=== PATIENT | female | born 1985 | race Two or more races ===

== ENCOUNTER → 2017-01-15 | Outpatient (CLI) | payer OTHER ==
[~2017-01-15] MED LIST: /ANUSHCSU PR; ACET50TA PO; DOCU10ELUD PO; IBUP600T26 PO; MOM30SS PO
[2017-01-15 09:50] LABS: MEAN CORPUSCULAR HEMOGLOBIN 27.5 pg (27.0-33.0); MEAN CORPUSCULAR VOLUME 83.3 fl (80.0-96.0); RED CELL DISTRIBUTION WIDTH 13.8 % (11.5-14.5); WHITE BLOOD COUNT 8.8 K/mm3 (4.0-10.0)
[2017-01-15 10:10] LABS: ALBUMIN 3.6 GM/DL (3.2-5.2); ALBUMIN/GLOBULIN RATIO 0.88 (1.00-1.93); ALKALINE PHOSPHATASE 83 U/L (45-117); ALT/SGPT 23 U/L (12-78); ANION GAP 8 MEQ/L (8-16); AST/SGOT 17 U/L (15-37); BILIRUBIN,TOTAL 0.6 MG/DL (0.2-1.0); BLOOD UREA NITROGEN 7 MG/DL (7-18); CALCIUM LEVEL 8.5 MG/DL (8.5-10.1); CARBON DIOXIDE LEVEL 27 MEQ/L (21-32); CHLORIDE LEVEL 106 MEQ/L (98-107); CREATININE FOR GFR 0.59 MG/DL (0.55-1.02); FERRITIN 37 NG/ML (8-252); GLOMERULAR FILTRATION RATE > 60.0 (>60); GLUCOSE, FASTING 79 MG/DL (70-105); PERCENT SATURATION 25.3 % (13.2-45.0); POTASSIUM SERUM 4.3 MEQ/L (3.5-5.1); SODIUM LEVEL 141 MEQ/L (136-145); TOTAL IRON BINDING CAPACITY 324 UG/DL (250-450); TOTAL PROTEIN 7.7 GM/DL (6.4-8.2)
[2017-01-17 00:08] LABS: Lyme Disease IgG/IgM Antibodie <0.91 ISR (0.00-0.90); Lyme Disease IgM Ab Quantitati <0.80 index (0.00-0.79)
== END ==
LOC: M WUC 08:03
PROVIDERS: ATTEND Nurse Practitioner Adult Health
DX: Z00.00 Encounter for general adult medical examination without abnormal findings (principal); R53.83 Other fatigue

== ENCOUNTER → 2017-04-22 | Outpatient (CLI) | payer OTHER ==
--- NOTE | 2017-04-23 10:00 | REP ---
MRI LEFT SHOULDER: TECHNIQUE: Axial T2 fat sat, gradient echo, sagittal oblique T2 fat sat, coronal oblique T1, T2 fat sat. There is a partial full thickness tear of the anterior supraspinatus tendon. The other rotator cuff tendons appear intact. There are mild hypertrophic degenerative changes of the acromioclavicular joint with mild downward sloping of the acromion. Acromion is type 2. Biceps tendon is within the bicipital groove. There is no Hill-Sachs deformity. The deltoid muscle demonstrates no abnormal signal. The biceps labral complex is intact. There appears to be a tear of the posterior superior corner of the glenoid labrum. There may also be a tear of the posterior labrum more inferiorly. There is no paralabral cyst. There is a small amount of fluid in the subacromial/subdeltoid bursae. Small subchondral cystic changes are seen in the humeral head. IMPRESSION: Partial full thickness tear anterior supraspinatus tendon. Mild hypertrophic degenerative changes acromioclavicular joint with downward sloping of the acromion which is type 2. Small amount of fluid in the subacromial/subdeltoid bursae. There appears to be a tear of the posterior superior corner of the glenoid labrum. There may also be a tear more inferiorly of the posterior labrum. Further evaluation may be made with MR arthrogram. Signed by Kenyon Rodríguez MD 04/23/2017 08:36 P
== END ==
LOC: M RAD 16:19
PROVIDERS: ATTEND Orthopaedic Surgery
DX: M75.32 Calcific tendinitis of left shoulder (principal); M75.42 Impingement syndrome of left shoulder

== ENCOUNTER → 2017-05-23 | Outpatient (CLI) | payer OTHER | LOC: M SLEEP 20:00 | DX: G47.33 Obstructive sleep apnea (adult) (pediatric) (principal) ==

== ENCOUNTER → 2017-06-14 | Outpatient (CLI) | payer OTHER | LOC: M SLEEP 20:00 | DX: G47.33 Obstructive sleep apnea (adult) (pediatric) (principal) ==

== ENCOUNTER 2017-08-03 05:51 | Day surgery (SDC) | payer OTHER ==
[2017-08-03] MEDS ORDERED: EPINEPHrine INJ 1 MG/ML 1ML AMP (05:52)
[2017-08-03] MEDS ORDERED: ROPIvacaine 0.5% 30 ML INJECTION (J2795 PER 1MG) (05:52)
[2017-08-03] MEDS ORDERED: dexameTHASONE 10 MG/1 ML VIAL PRES.FREE (J1100) (05:52)
[2017-08-03] MEDS ORDERED: LR 1,000 ML IV ×2 (06:00→09:30)
[2017-08-03 06:46] LABS: CONTROL LINE UCG INT CTR LINE PRESENT; URINE PREG TEST NEGATIVE (NEGATIVE)
[2017-08-03] MEDS ORDERED: fentaNYL 100 MCG/2 ML INJECTION (J3010) As Ordered ×2 (07:02→07:48)
[2017-08-03] MEDS ORDERED: MIDAZOLAM INJ 2 MG/2 ML VIAL (J2250) As Ordered ×2 (07:02→07:48)
[2017-08-03] MEDS: fentaNYL 100 MCG/2 ML INJECTION (J3010) IV (07:12)
[2017-08-03] MEDS: MIDAZOLAM INJ 2 MG/2 ML VIAL (J2250) IV (07:12)
[2017-08-03] MEDS ORDERED: dexameTHASONE 4 MG/ML 1ML VIAL (J1100) As Ordered ×2 (07:48)
[2017-08-03] MEDS ORDERED: LIDOCAINE 2% INJ 100 MG/5 ML SDV (FOR ANES.) As Ordered (07:48)
[2017-08-03] MEDS ORDERED: PROPOFOL 200 MG/20 ML VIAL As Ordered (07:48)
[2017-08-03] MEDS ORDERED: ROCURONIUM BROMIDE 50 MG/5 ML VIAL As Ordered (07:48)
[2017-08-03] MEDS ORDERED: ONDANSETRON 4MG/2ML VIAL (J2405) As Ordered (08:15)
[2017-08-03] MEDS: LIDOCAINE 1% MDV 20ML VIAL As Ordered (08:15)
[2017-08-03] MEDS ORDERED: GLYCOPYRROLATE INJ 0.2 MG/ML 2 ML VIAL As Ordered (08:15)
[2017-08-03] MEDS: EPINEPHrine 1MG/ML INJ 30ML MD-VIAL As Ordered (08:15)
[2017-08-03] MEDS ORDERED: NEOSTIGMINE 10 MG/10 ML VIAL (J2710) As Ordered (08:15)
[2017-08-03] MEDS ORDERED: KETOROLAC 60 MG/2 ML VIAL (J1885) As Ordered (08:37)
[2017-08-03] MEDS ORDERED: ONDANSETRON 4MG/2ML VIAL (J2405) IV (09:30)
[2017-08-03] MEDS ORDERED: fentaNYL 100 MCG/2 ML INJECTION (J3010) IV (09:30)
== END 2017-08-03 10:55 | disposition home or self-care (01) ==
LOC: M SDC 05:51
DX: M75.102 Unspecified rotator cuff tear or rupture of left shoulder, not specified as traumatic (principal); M75.42 Impingement syndrome of left shoulder; M75.32 Calcific tendinitis of left shoulder; G47.30 Sleep apnea, unspecified; Z88.8 Allergy status to other drugs, medicaments and biological substances; Z79.899 Other long term (current) drug therapy
CPT/HCPCS: 29823

== ENCOUNTER → 2020-02-01 | Outpatient (REF) | payer OTHER ==
[~2020-02-01] MED LIST changes: -/ANUSHCSU PR; -ACET50TA PO; -DOCU10ELUD PO; +DOCU5LIQ PO; +HYDR1SUP3 PR; +MAPA500T17 PO; +ZOLO50TA PO
[2020-02-01 14:06] LABS: ALBUMIN 3.6 GM/DL (3.2-5.2); ALT/SGPT 26 U/L (12-78); BILIRUBIN,TOTAL 0.5 MG/DL (0.2-1.0); BLOOD UREA NITROGEN 7 MG/DL (7-18); CALCIUM LEVEL 8.8 MG/DL (8.5-10.1); CARBON DIOXIDE LEVEL 26 MEQ/L (21-32); CHLORIDE LEVEL 105 MEQ/L (98-107); CHOLESTEROL LEVEL 214 MG/DL (<200); CHOLESTEROL RISK RATIO 4.976 (<5); CREATININE FOR GFR 0.63 MG/DL (0.55-1.30); GLOMERULAR FILTRATION RATE > 60.0 (>60); GLUCOSE, FASTING 79 MG/DL (70-100); HDL CHOLESTEROL 43 MG/DL (>40); LDL CHOLESTEROL 145 MG/DL (<100); NON-HDL-C 171 MG/DL; POTASSIUM SERUM 4.5 MEQ/L (3.5-5.1); SODIUM LEVEL 137 MEQ/L (136-145); TOTAL PROTEIN 7.8 GM/DL (6.4-8.2); TRIGLYCERIDES LEVEL 130 MG/DL (<150)
[2020-02-01 16:20] LABS: HEMOGLOBIN A1c 5.2 %
== END ==
LOC: M LABDRWAD 12:28
PROVIDERS: ATTEND Nurse Practitioner Adult Health
DX: Z00.00 Encounter for general adult medical examination without abnormal findings (principal); Z13.220 Encounter for screening for lipoid disorders; Z13.1 Encounter for screening for diabetes mellitus

== ENCOUNTER → 2020-02-21 | Outpatient (REF) | payer OTHER | LOC: M LAB REF 16:34 | PROVIDERS: ATTEND Physician Assistant | DX: J02.9 Acute pharyngitis, unspecified (principal) ==

== ENCOUNTER → 2020-03-20 | Outpatient (CLI) | payer OTHER ==
[2020-03-20 15:52] LABS: BASO # 0.1 10^3/uL (0.0-0.2); BASO % 0.5 % (0.0-1.0); EOS # 0.2 10^3/uL (0.0-0.5); EOS % 1.8 % (0.0-3.0); HEMATOCRIT 40.3 % (36.0-47.0); HEMOGLOBIN 12.7 g/dl (12.0-15.5); LYMPH # 3.7 10^3/uL (1.5-5.0); LYMPH % 36.6 % (24.0-44.0); MEAN CORPUSCULAR HGB CONC 31.5 g/dl (32.0-36.5); MEAN CORPUSCULAR VOLUME 85.7 fl (80.0-96.0); MONO # 0.5 10^3/uL (0.0-0.8); MONO % 5.3 % (0.0-5.0); NEUTROPHILS # 5.6 10^3/uL (1.5-8.5); NEUTROPHILS % 55.6 % (36.0-66.0); PLATELET COUNT, AUTOMATED 384 10^3/uL (150-450); WHITE BLOOD COUNT 10.1 10^3/uL (4.0-10.0)
[2020-03-20 16:52] LABS: ALBUMIN 3.8 GM/DL (3.2-5.2); ALT/SGPT 27 U/L (12-78); BILIRUBIN,TOTAL 0.5 MG/DL (0.2-1.0); BLOOD UREA NITROGEN 9 MG/DL (7-18); CALCIUM LEVEL 8.9 MG/DL (8.5-10.1); CARBON DIOXIDE LEVEL 28 MEQ/L (21-32); CHLORIDE LEVEL 105 MEQ/L (98-107); CREATININE FOR GFR 0.69 MG/DL (0.55-1.30); GLOMERULAR FILTRATION RATE > 60.0 (>60); GLUCOSE, FASTING 81 MG/DL (70-100); POTASSIUM SERUM 4.3 MEQ/L (3.5-5.1); SODIUM LEVEL 138 MEQ/L (136-145)
[2020-03-22 15:12] LABS: EBV AB TO NUCLEAR ANTIGEN >600.0 U/mL (0.0-17.9); EBV VIRAL CAPSID AG IgG >600.0 U/mL (0.0-17.9); EBV VIRAL CAPSID AG IgM <36.0 U/mL (0.0-35.9)
== END ==
LOC: M WUC 11:58
PROVIDERS: ATTEND Physician Assistant
DX: J03.90 Acute tonsillitis, unspecified (principal); Z20.828 Contact with and (suspected) exposure to other viral communicable diseases

== ENCOUNTER → 2020-03-20 | Outpatient (REF) | payer OTHER | LOC: M LAB REF 15:00 | PROVIDERS: ATTEND Physician Assistant | DX: J03.90 Acute tonsillitis, unspecified (principal) ==

== ENCOUNTER → 2020-04-30 | Outpatient (REF) | payer OTHER | LOC: M SFHCPLAZ 12:35 | PROVIDERS: ATTEND Nurse Practitioner Adult Health | DX: R35.0 Frequency of micturition (principal) ==

== ENCOUNTER 2020-06-10 04:05 | Emergency (ER) | payer OTHER ==
[~2020-06-10] VITALS: Ht 160 cm; Wt 127.7 kg
[2020-06-10] MEDS ORDERED: PAXI20TA29 PO (04:16)
[2020-06-10] MEDS ORDERED: TUMS500C PO (04:16)
[2020-06-10] MEDS ORDERED: RANI15TA PO (04:26)
[2020-06-10] MEDS ORDERED: ONDANSETRON 4MG/2ML VIAL IV ONE (04:30)
[2020-06-10] MEDS ORDERED: MORPHINE 4 MG/ML 1ML VIAL/SYRINGE (J2270) IV ONE (04:30)
[2020-06-10 05:13] LABS: BASO # 0.1 10^3/uL (0.0-0.2); BASO % 0.6 % (0.0-1.0); EOS # 0.2 10^3/uL (0.0-0.5); EOS % 1.5 % (0.0-3.0); HEMATOCRIT 38.9 % (36.0-47.0); HEMOGLOBIN 12.6 g/dl (12.0-15.5); LYMPH % 26.8 % (24.0-44.0); MEAN CORPUSCULAR HEMOGLOBIN 27.3 pg (27.0-33.0); MEAN CORPUSCULAR HGB CONC 32.4 g/dl (32.0-36.5); MEAN CORPUSCULAR VOLUME 84.4 fl (80.0-96.0); MONO # 0.5 10^3/uL (0.0-0.8); MONO % 4.5 % (0.0-5.0); NEUTROPHILS # 7.5 10^3/uL (1.5-8.5); NEUTROPHILS % 66.4 % (36.0-66.0); PLATELET COUNT, AUTOMATED 377 10^3/uL (150-450); RED BLOOD COUNT 4.61 10^6/uL (4.00-5.40); WHITE BLOOD COUNT 11.3 10^3/uL (4.0-10.0)
[2020-06-10 05:33] LABS: ALBUMIN 3.7 GM/DL (3.2-5.2); BILIRUBIN,DIRECT 0.1 MG/DL (0.0-0.2); BILIRUBIN,TOTAL 0.5 MG/DL (0.2-1.0); TOTAL PROTEIN 8.5 GM/DL (6.4-8.2)
[2020-06-10] MEDS ORDERED: ISOVUE-370 76% 100ML VIAL As Ordered ONE (05:42)
--- NOTE | 2020-06-10 06:47 | REPVR ---
PROCEDURE INFORMATION: Exam: CT Abdomen And Pelvis With Contrast Exam date and time: 06/10/2020 5:57 AM Age: 34 years old Clinical indication: Abdominal pain; Localized; Upper; Additional info: Ruq/luq pain and ttp radiating to left CVA TECHNIQUE: Imaging protocol: Computed tomography of the abdomen and pelvis with contrast. Radiation optimization: All CT scans at this facility use at least one of these dose optimization techniques: automated exposure control; mA and/or kV adjustment per patient size (includes targeted exams where dose is matched to clinical indication); or iterative reconstruction. Contrast material: ISOVUE 370; Contrast volume: 100 ml; Contrast route: INTRAVENOUS (IV); COMPARISON: No relevant prior studies available. FINDINGS: Liver: Fatty infiltration of the liver. Hepatomegaly longitudinally measuring 23.5 cm. Gallbladder and bile ducts: Mild elongated expanded gallbladder without definite calculi with hydropic diameter measuring 5.2 cm. Pancreas: Normal. No ductal dilation. Spleen: Upper normal spleen size. Adrenal glands: Normal. No mass. Kidneys and ureters: Normal. No hydronephrosis. Stomach and bowel: Unremarkable. No obstruction. No mucosal thickening. Appendix: No evidence of appendicitis. Intraperitoneal space: Unremarkable. No free air. No significant fluid collection. Vasculature: Unremarkable. No abdominal aortic aneurysm. Lymph nodes: Unremarkable. No enlarged lymph nodes. Urinary bladder: Unremarkable as visualized. Reproductive: Small functional cyst left ovary. Bones/joints: Mild degenerative change of the spine. Soft tissues: Unremarkable. IMPRESSION: 1. Elongated hydropic diameter of the gallbladder. 2. Fatty infiltration of the liver. 3. Hepatomegaly. Electronically signed by: Bridgett Coleman On 06/10/2020 06:47:06 AM
[2020-06-10] MEDS ORDERED: DICY10CA13 PO (07:09)
[2020-06-10 07:18] VITALS: BP 129/74
== END 2020-06-10 07:39 | disposition home or self-care (01) ==
LOC: M ED 04:05
DX: R10.13 Epigastric pain (principal)
CPT/HCPCS: 74177; 80047; 80076; 81001; 83690; 84702; 85025; 87086; 93041; 96374; 96375; 99284; J2270; J2405; Q9967

== ENCOUNTER → 2020-07-09 | Outpatient (CLI) | payer OTHER ==
[~2020-07-09] MED LIST changes: +DICY10CA13 PO; +PAXI20TA29 PO; +RANI15TA PO; +TUMS500C PO
--- NOTE | 2020-07-09 11:28 | REP ---
INDICATION: EPIGASTRIC PAIN. COMPARISON: None TECHNIQUE/RADIOTRACER AND DOSE: FOLLOWING THE INTRAVENOUS ADMINISTRATION OF 6.6 MCI TECHNETIUM 99 M-MEBROFENIN, MULTIPLE IMAGES OF THE RIGHT UPPER QUADRANT ARE PERFORMED FOR 60 MINUTES. NEXT 8 OZ OF ENSURE ENLIVE IS INGESTED AND FURTHER IMAGING IS PERFORMED FOR 65 MINUTES. FINDINGS: THE GALLBLADDER IS VISUALIZED AT 55 MINUTES POST INJECTION. THERE IS BILIARY TO BOWEL TRANSIT AT 15MINUTES POST INJECTION. THERE IS NO SCINTIGRAPHIC EVIDENCE OF CHOLECYSTITIS. GALLBLADDER EJECTION FRACTION IS CALCULATED TO BE 2% WHICH IS well below normal of 35% or greater. IMPRESSION: Significantly low gallbladder ejection fraction of 2%. <Electronically signed by Kenyon Rodríguez > 07/09/20 1128
== END ==
LOC: M RAD 08:37
PROVIDERS: ATTEND Nurse Practitioner Adult Health
DX: R10.13 Epigastric pain (principal)
CPT/HCPCS: 78227; A9537

== ENCOUNTER → 2020-08-12 | Outpatient (CLI) | payer OTHER | LOC: M LABSMTC 09:15 | PROVIDERS: ATTEND Anesthesiology | DX: Z01.812 Encounter for preprocedural laboratory examination (principal) ==

== ENCOUNTER 2020-08-17 07:43 | Day surgery (SDC) | payer OTHER ==
[~2020-08-17] VITALS: Ht 160 cm; Wt 125.6 kg
[~2020-08-17 07:43] MED LIST changes: +LR 1,000 ML IV ONE
[2020-08-17] MEDS ORDERED: BUPIVACAINE/EPIN 0.25% 30 ML VIAL As Ordered ONE (09:30)
[2020-08-17] MEDS ORDERED: ONDANSETRON 4MG/2ML VIAL As Ordered ONE (09:57)
[2020-08-17] MEDS ORDERED: fentaNYL 100 MCG/2 ML INJECTION (J3010) As Ordered ONE ×2 (09:57→11:12)
[2020-08-17] MEDS ORDERED: SUGAMMADEX SODIUM 500 MG/5 ML VIAL (BRIDION) As Ordered ONE (09:57)
[2020-08-17] MEDS ORDERED: ROCURONIUM BROMIDE 50 MG/5 ML VIAL As Ordered ONE (09:57)
[2020-08-17] MEDS ORDERED: MIDAZOLAM INJ 2MG/2ML VIAL (J2250 PER 1MG) As Ordered ONE (09:57)
[2020-08-17] MEDS ORDERED: propofoL 200 MG/20 ML VIAL As Ordered ONE (09:57)
[2020-08-17] MEDS ORDERED: dexameTHASONE 4 MG/ML 1ML VIAL (J1100 PER 1MG) As Ordered ONE (09:57)
[2020-08-17] MEDS ORDERED: KETOROLAC 60MG 2ML VIAL As Ordered ONE (09:57)
[2020-08-17] MEDS ORDERED: LIDOCAINE 2% 100MG/5ML SDV (FOR ANES.) As Ordered ONE (09:57)
[2020-08-17] MEDS ORDERED: HYDROmorphone HCL 2 MG/ML 1ML VIAL (J1170) As Ordered ONE (09:59)
[2020-08-17] MEDS ORDERED: ACETAMINOPHEN 1000MG 100ML IV BTL (OFIRMEV) (J0131 PER 10MG) As Ordered ONE (10:18)
[2020-08-17] MEDS ORDERED: ESMOLOL INJ 100MG/10ML VIAL As Ordered ONE (10:28)
[2020-08-17] MEDS ORDERED: hydrALAZINE 20MG/ML 1ML VIAL (J0360 PER 20MG) As Ordered ONE (10:29)
[2020-08-17] MEDS ORDERED: METOCLOPRAMIDE INJ 10MG/2ML VIAL (J2765 PER 1) IV PRN (11:15)
[2020-08-17] MEDS ORDERED: MEPERIDINE INJ 25 MG/ML VIAL (J2175) IV PRN (11:15)
[2020-08-17] MEDS ORDERED: fentaNYL 100 MCG/2 ML INJECTION (J3010) IV PRN (11:15)
[2020-08-17] MEDS ORDERED: NORCO, ANEXSIA 5/325MG TABLET (HYDROcodone/ACETAMINOPHEN) PO PRN (11:15)
[2020-08-17] MEDS ORDERED: ONDANSETRON 4MG/2ML VIAL IV PRN (11:15)
[2020-08-17] MEDS ORDERED: LR 1,000 ML IV SCH (11:15)
[2020-08-17] MEDS ORDERED: oxyCODONE 5MG TAB PO PRN (11:15)
--- NOTE | 2020-08-17 11:48 | RO ---
OPERATIVE NOTE DATE OF OPERATION: 08/17/2020 PREOPERATIVE DIAGNOSIS: Biliary dyskinesia. POSTOPERATIVE DIAGNOSIS: Biliary dyskinesia. PROCEDURE: Robotic cholecystectomy. SURGEON: Kenyon Jacobo DO ASSIST: Jamilah Staley ANESTHESIA: General. EBL: 5. COMPLICATIONS: None. INDICATIONS FOR PROCEDURE: The patient is a 34-year-old female who presents with persistent right upper quadrant abdominal pain, found to have biliary dyskinesia with abnormal HIDA scan of 2%. Recommendation was to proceed with robotic cholecystectomy. Risks and benefits of the procedure including but not limited to bleeding, infection, hernia formation, damage to surrounding structures and need for further surgery were discussed in detail with the patient and informed consent was obtained and procedure was planned. DESCRIPTION OF PROCEDURE: The patient was brought back to operating room 7. After sufficient sedation the abdomen was sterilely prepped and draped. Time out was done to confirm proper patient and proper procedure. An 8 mm incision was made in left upper quadrant, Veress needle was inserted and the abdomen was insufflated to 15 mmHg. Veress needle was removed and 8 mm Optiview port was used to gain access to the abdomen. Once the abdomen was entered three more ports were placed in the right upper quadrant. Ports were then connected to the robot. The robot was docked. The abdomen was examined. The fundus of the gallbladder was elevated up toward the right shoulder. Omental adhesions were gently dissected off the gallbladder using blunt dissection. Once the neck of the gallbladder was reached the cystic duct and cystic artery were carefully dissected free using combination of blunt and sharp dissection. Once they were both clearly identified they were both doubly clipped and cut. The gallbladder was dissected free from the gallbladder fossa using electrocautery. Once the gallbladder was removed it was placed inside a 5 mm Endo Catch bag and brought out through the right lateral port site. Once the gallbladder was removed the bile that leaked out of the gallbladder was aspirated out of the right upper quadrant. The liver fossa was examined to confirm hemostasis. The abdomen was then desufflated. Skin incisions were closed with 4-0 Vicryl subcuticular sutures. The abdomen was cleaned and dried. Steri-Strips, 4 x 4 and tape were applied. This ended the procedure.
[2020-08-17 13:05] VITALS: BP 112/62
== END 2020-08-17 13:25 | disposition home or self-care (01) ==
LOC: M SDC 07:43
PROVIDERS: ATTEND Surgery
DX: K82.4 Cholesterolosis of gallbladder (principal); G47.33 Obstructive sleep apnea (adult) (pediatric); Z79.899 Other long term (current) drug therapy
CPT/HCPCS: 47562; 81025; 88304; J0131; J0360; J1100; J1170; J1885; J2250; J2405; J3010; S2900

== ENCOUNTER → 2020-10-03 | Outpatient (CLI) | payer OTHER ==
[~2020-10-03] MED LIST changes: -LR 1,000 ML IV ONE
--- NOTE | 2020-10-03 17:56 | REP ---
INDICATION: PAIN IN LEFT KNEE COMPARISON: None TECHNIQUE: Five views FINDINGS: The compartments are symmetric and relatively well maintained. There is no acute fracture or destructive osseous lesion. IMPRESSION: Within normal limits <Electronically signed by Forrest Madera > 10/03/20 7230
== END ==
LOC: M RAD 17:35
PROVIDERS: ATTEND Nurse Practitioner Family
DX: M25.562 Pain in left knee (principal)

== ENCOUNTER → 2021-03-09 | Outpatient (CLI) | payer OTHER | LOC: M LABSMTC 10:35 | PROVIDERS: ATTEND Anesthesiology | DX: Z01.812 Encounter for preprocedural laboratory examination (principal); Z20.822 Contact with and (suspected) exposure to COVID-19 ==

== ENCOUNTER → 2021-03-09 | Outpatient (CLI) | payer OTHER ==
--- NOTE | 2021-03-09 15:32 | ECGEPIP ---
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 Electronically Signed on 03-09-2021 15:32:09 EDT by Ian Thomas
== END ==
LOC: M EKG 11:16
PROVIDERS: ATTEND Anesthesiology
DX: G47.30 Sleep apnea, unspecified (principal)

== ENCOUNTER 2021-03-14 07:55 | Day surgery (SDC) | payer OTHER ==
[~2021-03-14] VITALS: Ht 160 cm; Wt 127.0 kg
[~2021-03-14 07:55] MED LIST changes: +LIDOCAINE 1% MDV 20ML VIAL SQ PRN; +LR 1,000 ML IV ONE; +dexameTHASONE 4 MG/ML 1ML VIAL (J1100 PER 1MG) IV ONE
--- OUTSIDE RECORDS SUMMARY | 2021-03-14 07:59 | CCD | Continuity of Care Document ---
Author Author Diego RENAE MD Organization Unknown Address [address] [facility] [address] [place] [address] Phone [phone] Care Team Providers Care Safety Engineer Name Role Phone AmiageLibby R.N. AUTM [phone] AUTM Unavailable Problems Active Problems Provider Date Obstructive sleep apnea syndrome Garry Herbert PDede Onset: 06/10/2017 Difficulty breathing Cleo Raza Onset: 05/20/2017 Disturbance of consciousness Garry Herbert PDede Onset: 05/04 Social History Type Date Description Comments Sex Unknown ETOH Use Occasionally consumes alcohol Tobacco Use Start: Unknown Patient has never smoked Recreational Drug Use Denies Drug Use Allergies and adverse reactions Active Allergies Criticality Reaction | Severity Comments Date Christianne Unable to assess criticality Skin Blisters 05/20/2017 Medications Active Medications SIG Qnty Indications Ordering Provide r Date Paxil 10mg Tablets 1 by mo uth every day Unknown Ibuprofen 600mg Tablets prn Unknown History Medications Hydrocodone-Acetaminophen 5-325mg Tablets One Tab PO Q6H as Needed For Post-Op Pain 10tabs K82.8 Kenyon Jacobo, 08/08/2020 - 08/29/2020 Immunizations Description No Information Available Vital Signs Date Vital Result Comment 01/25/2021 3:29pm Height 63.5 inches 5'3.50" Weight 277.00 lb BMI (Body Mass Index) 48.3 kg/m2 [place] Body Weight 115 lb Weight 125.647 kg BSA (Body Surface Area) 2.23 m2 08/30/2020 10:15am BP Systolic 131 mmHg BP Diastolic 85 mmHg Height 63.5 inches 5'3.50" Weight 275.00 lb BMI (Body Mass Index) 47.9 kg/m2 [place] Body Weight 115 lb Weight 124.740 kg BSA (Body Surface Area) 2.23 m2 Results Test Acquired Date Facility Test Result H/L Range Note Laboratory test finding 08/17/2020 [facility] [address] [place] [address] [phone] Pathology Request For Service (SEE NOTE) 1 1 FINAL DIAGNOSIS Gallbladder, cholecystectomy: Cholesterolosis with mild chronic inflammation without entrapped epithelial crypts. Comment: Clinical history of biliary dyskinesia is noted. 08/20/2020 - 954 CLINICAL DIAGNOSIS Biliary dyskinesia 08/20/2020 - 718 GROSS DIAGNOSIS Received in formalin labeled "gallbladder and contents" and consists of a 6 x 3 x 2 cm. The specimen is opened to reveal benign mucosa. No gallstones are identified. No polypoid or mass lesion is identified. Tobacco Drier Operator sections submitted in one. -OA 08/20/2020 - 718 Signed PASQUALE GOOD MD 08/20/2020 0955 Procedures Date Code Description Status 01/25/2021 85972 Office/Outpatient New Moderate M DM 45-59 Minutes Completed 08/17/2020 43431 Laparoscopy,Surgical;Cholecystec rena Completed Medical Devices Description No Information Available Encounters Type Date Location Provider Dx Diagnosis Office Visit 01/25/2021 3:30p [facility] John Paul Renae MD J35.01 Chronic tonsillitis Office Visit 08/30/2020 10:00a [facility] SY Cohen K81.1 Chronic cholecystitis Z48.815 Encntr for surgical aftcr fo llowing surgery on the dgstv sys Z90.49 Acquired absence of other sp ecified parts of digestive tract Assessments Date Code Description Provider 01/25/2021 J35.01 Chronic tonsillitis John Paul Renae MD 08/30/2020 K81.1 Chronic cholecystitis SY Alejandra 08/30/2020 Z48.815 Encounter for surgic al aftercare following surgery on the digestive system SY Luna 08/30/2020 Z90.49 Acquired absence of other specif ied parts of digestive tract SY Luna 08/17/2020 K82.8 Other specified diseases of gall bladder Kenyon Jacobo DO 08/17/2020 K81.1 Chronic cholecystitis Kenyon Jacobo DO Plan of Treatment 01/25/2021 - John Paul Renae MD* J35.01 Chronic tonsillitis* Comments:* Management option for recurrent tonsillitis include careful observation with use of antibiotic versus tonsillectomy. Risks of procedure include, but are not li mited to, bleeding, infection, GA risks, post-op pain, dehydration, and taste disturbance. The patient understands and wishes to proceed. Functional Status Functional Condition Comment Date Status Independent with all ADL's Activ e Independent with all IADL's Acti ve Mental Status Mental Condition Comment Date Status Cognitive ability not impaired A ctive Referrals Description No Information Available
--- OUTSIDE RECORDS SUMMARY | 2021-03-14 07:59 | CCD ---
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 Name Role Phone Dia, Fabienne PULLER MACHINE Unavailable Unavailable Dia, Fabienne PULLER MACHINE Unavailable Unavailable Dia, Fabienne PULLER MACHINE Unavailable Unavailable Dia, Fabienne PULLER MACHINE Unavailable Unavailable Dia, Fabienne PULLER MACHINE Unavailable Unavailable Dia, Fabienne PULLER MACHINE Unavailable Unavailable Dia, Fabienne PULLER MACHINE Unavailable Unavailable Dia, Fabienne PULLER MACHINE Unavailable Unavailable Dia, Fabienne PULLER MACHINE Unavailable Unavailable Dia, Fabienne PULLER MACHINE Unavailable Unavailable Dia, Fabeinne PULLER MACHINE Unavailable Unavailable Dia, Fabienne PULLER MACHINE Unavailable Unavailable Dia, Fabienne PULLER MACHINE Unavailable Unavailable LETTIERE, Arminda NORTON PA Unavailable Unavailable LETTIERE, Arminda DAN Unavailable Unavailable LETTIERE, Arminda NORTON PA Unavailable Unavailable LETTIERE, Arminda NORTON PA Unavailable Unavailable LETTIERE, Arminda NORTON PA Unavailable Unavailable LETTIERE, Arminda NORTON PA Unavailable Unavailable LETTIERE, Arminda NORTON PA Unavailable Unavailable LETTIERE, Arminda NORTON PA Unavailable Unavailable LETTIERE, Arminda NORTON PA Unavailable Unavailable LETTIERE, Arminda DAN Unavailable Unavailable LETTIERE, Arminda NORTON PA Unavailable Unavailable LETTIERE, Arminda DAN Unavailable Unavailable LETTIERE, Arminda DAN Unavailable Unavailable LETTIERE, Arminda DAN Unavailable Unavailable LETTIERE, A CIERRA PA Unavailable Unavailable LETTIERE, A CIERRA PA Unavailable Unavailable LETTIERE, A CIERRA PA Unavailable Unavailable LETTIERE, A CIERRA PA Unavailable Unavailable LETTIERE, A CIERRA PA Unavailable Unavailable LETTIERE, A CIERRA PA Unavailable Unavailable LETTIERE, A CIERRA PA Unavailable Unavailable LETTIERE, A CIERRA PA Unavailable Unavailable LETTIERE, A CIERRA PA Unavailable Unavailable LETTIERE, A CIERRA PA Unavailable Unavailable LETTIERE, A CIERRA PA Unavailable Unavailable LETTIERE, A CIERRA PA Unavailable Unavailable LETTIERE, A CIERRA PA Unavailable Unavailable LETTIERE, A CIERRA PA Unavailable Unavailable LETTIERE, A CIERRA PA Unavailable Unavailable LETTIERE, A CIERRA PA Unavailable Unavailable LETTIERE, A CIERRA PA Unavailable Unavailable Palacios, Ada Tomasa PA Unavailable Unavailable Palacios, Ada Tomasa PA Unavailable Unavailable Palacios, Ada Tomasa PA Unavailable Unavailable Palacios, Ada Tomasa PA Unavailable Unavailable Palacios, Ada Tomasa PA Unavailable Unavailable Palacios, Ada Tomasa PA Unavailable Unavailable Palacios, Ada Tomasa PA Unavailable Unavailable Palacios, Ada Tomasa PA Unavailable Unavailable Palacios, Ada Tomasa PA Unavailable Unavailable Palacios, Ada Tomasa PA Unavailable Unavailable BRYDEN, A BOGDAN DO Unavailable Unavailable BRYDEN, A BOGDAN DO Unavailable Unavailable BRYDEN, A BOGDAN DO Unavailable Unavailable BRYDEN, A BOGDAN DO Unavailable Unavailable BRYDEN, A BOGDAN DO Unavailable Unavailable BRYDEN, A BOGDAN DO Unavailable Unavailable BRYDEN, A BOGDAN DO Unavailable Unavailable BRYDEN, A BOGDAN DO Unavailable Unavailable BRYDEN, A BOGDAN DO Unavailable Unavailable BRYDEN, A BOGDAN DO Unavailable Unavailable BRYDEN, A BOGDAN DO Unavailable Unavailable BRYDEN, A BOGDAN DO Unavailable Unavailable BRYDEN, A BOGDAN DO Unavailable Unavailable BRYDEN, A BOGDAN DO Unavailable Unavailable BRYDEN, A BOGDAN DO Unavailable Unavailable BRYDEN, A BOGDAN DO Unavailable Unavailable BRYDEN, A BOGDAN DO Unavailable Unavailable BRYDEN, A BOGDAN DO Unavailable Unavailable BRYDEN, A BOGDAN DO Unavailable Unavailable BRYDEN, A BOGDAN DO Unavailable Unavailable BRYDEN, A BGODAN DO Unavailable Unavailable BRYDEN, A BOGDAN DO Unavailable Unavailable BRYDEN, A BOGDAN DO Unavailable Unavailable BRYDEN, A BOGDAN DO Unavailable Unavailable BRYDEN, A BOGDAN DO Unavailable Unavailable BRYDEN, A BOGDAN DO Unavailable Unavailable BRYDEN, A BOGDAN DO Unavailable Unavailable BRYDEN, A BOGDAN DO Unavailable Unavailable BRYDEN, A BOGDAN DO Unavailable Unavailable Colby, L Thuy RPA Unavailable Unavailable Colby, L Thuy RPA Unavailable Unavailable Colby, L Thuy RPA Unavailable Unavailable Colby, L Thuy RPA Unavailable Unavailable Colby, L Thuy RPA Unavailable Unavailable Colby, L Thuy RPA Unavailable Unavailable Colby, L Thuy RPA Unavailable Unavailable Colby, L Thuy RPA Unavailable Unavailable Colby, L Thuy RPA Unavailable Unavailable Colby, L Thuy RPA Unavailable Unavailable Colby, L Thuy RPA Unavailable Unavailable Colby, L Thuy RPA Unavailable Unavailable Colby, L Thuy RPA Unavailable Unavailable Colby, L Thuy RPA Unavailable Unavailable Colby, L Thuy RPA Unavailable Unavailable Colby, L Thuy RPA Unavailable Unavailable Colby, L Thuy RPA Unavailable Unavailable Colby, L Thuy RPA Unavailable Unavailable Colby, L Thuy RPA Unavailable Unavailable Colby, L Thuy RPA Unavailable Unavailable Colby, L Thuy RPA Unavailable Unavailable Colby, L Thuy RPA Unavailable Unavailable Colby, L Thuy RPA Unavailable Unavailable Colby, L Thuy RPA Unavailable Unavailable Colby, L Thuy RPA Unavailable Unavailable Colby, L Thuy RPA Unavailable Unavailable Colby, L Thuy RPA Unavailable Unavailable Colby, L Thuy RPA Unavailable Unavailable Colby, L Thuy RPA Unavailable Unavailable Colby, L Thuy RPA Unavailable Unavailable Colby, L Thuy RPA Unavailable Unavailable Colby, L Thuy RPA Unavailable Unavailable Srinath RENAE MD Unavailable Unavailable Srinaht RENAE MD Unavailable Unavailable Srinath RENAE MD Unavailable Unavailable Srinath RENAE MD Unavailable Unavailable Srinath RENAE MD Unavailable Unavailable Srinath RENAE MD Unavailable Unavailable Srinath RENAE MD Unavailable Unavailable Srianth RENAE MD Unavailable Unavailable Srinath RENAE MD Unavailable Unavailable Srinath RENAE MD Unavailable Unavailable Srinath RENAE MD Unavailable Unavailable Srinath RENAE MD Unavailable Unavailable Srinath RENAE MD Unavailable Unavailable Srinath RENAE MD Unavailable Unavailable Srinath RENAE MD Unavailable Unavailable Srinath RENAE MD Unavailable Unavailable Srinath RENAE MD Unavailable Unavailable Srinath RENAE MD Unavailable Unavailable Srinath RENAE MD Unavailable Unavailable Srinath RENAE MD Unavailable Unavailable ERIN, C SHIKHA MD Unavailable Unavailable ERIN, C SHIKHA MD Unavailable Unavailable ERIN, C SHIKHA MD Unavailable Unavailable ERIN, C SHIKAH MD Unavailable Unavailable ERIN, C SHIKHA MD Unavailable Unavailable ERIN, C SHIKHA MD Unavailable Unavailable ERIN, C SHIKHA MD Unavailable Unavailable ERIN, C SHIKHA MD Unavailable Unavailable ERIN, C SHIKHA MD Unavailable Unavailable ERIN, C SHIKHA MD Unavailable Unavailable ERIN, C SHIKHA MD Unavailable Unavailable ERIN, C SHIKHA MD Unavailable Unavailable ERIN, C SHIKHA MD Unavailable Unavailable ERIN, C SHIKHA MD Unavailable Unavailable Re-disclosure Warning The records that you are about to access may contain information from federally-assisted alcohol or drug abuse programs. If such information is present, then the following federally mandated warning applies: This information has been disclosed to you from records protected by federal confidentiality rules (42 CFR part 2). The federal rules prohibit you from making any further disclosure of this information unless further disclosure is expressly permitted by the written consent of the person to whom it pertains or as otherwise permitted by 42 CFR part 2. A general authorization for the release of medical or other information is NOT sufficient for this purpose. The Federal rules restrict any use of the information to criminally investigate or prosecute any alcohol or drug abuse patient.The records that you are about to access may contain highly sensitive health information, the redisclosure of which is protected by Article 27-F of the [facility] Public Health law. If you continue you may have access to information: Regarding HIV / AIDS; Provided by facilities licensed or operated by the [facility] Office of Mental Health; or Provided by the [facility] Office for People With Developmental Disabilities. If such information is present, then the following [facility] mandated warning applies: This information has been disclosed to you from confidential records which are protected by state law. State law prohibits you from making any further disclosure of this information without the specific written consent of the person to whom it pertains, or as otherwise permitted by law. Any unauthorized further disclosure in violation of state law may result in a fine or intermediate sentence or both. A general authorization for the release of medical or other information is NOT sufficient authorization for further disc losure. Family History Family Member Name Family Member Gender Family Member Status Date o f Status Description Data Source(s) Unknown Unknown Problem [facility] ([facility]) Unknown Unknown Problem [facility] ([facility]) Unknown Male Problem [facility] ([facility], ) Unknown Male Problem [facility] ([facility]) Encounters Encounter Providers Location Date Indications Data Source(s ) Outpatient Attender: SHIKHA Renae/Alejandrina/Ori/Analy lal 01/25/2021 03:30:00 PM EDT [facility] ([facility] [place] [address] [facility] [facility] [address] 01/09/2021 12:00:00 AM EDT eCW1 ([facility]) Outpatient Attender: Fabienne telles 10/03/2020 04:45:00 PM EDT [facility] ([facility]) Unknown [address] [facility] [place] [address] 09/04/2020 12:00:00 AM EDT eCW1 ([facility]) Office Visit Attender: Thuy Renae/Alejandrina/Ori/R eindlukasz 08/30/2020 10:00:00 AM EDT [facility] ([facility] ) [place]patient [address] [facility] [place] [address] 08/15/2020 12:00:00 AM EDT eCW1 ([facility]) Outpatient Attender: BOGDAN Jansen/Alejandrina/Ori/Glen ndl 07/12/2020 08:50:00 AM EST [facility] ([facility] [place] [address] [facility] [address] 06/13/2020 12:00:00 AM EST eCW1 ([facility]) Unknown [address] [facility] [place] [address] 06/11/2020 12:00:00 AM EST [facility]CW1 [facility] Outpatient [address] [facility] [place] [address] 04/30/2020 12:00:00 AM EST eCW1 ([facility]) Outpatient Attender: CIERRA Lorenzoyessica Velazquez Prim rogelio 03/20/2020 11:00:00 AM EST [facility] ([facility]) Outpatient Attender: Tomasa Dixon Marcus Prim rogelio 02/21/2020 01:15:00 PM EDT [facility] ([facility]) Immunizations Vaccine Date Status Description Data Source(s) COVID-19 VACCINE Moderna 08/04/2020 12:00:00 AM EDT completed [facility] Vaccine Series Complete: YESThis Data wa s Submitted to [facility]. COVID-19 VACCINE Moderna 07/07/2020 12:00:00 AM EST completed [facility] Vaccine Series Complete: NOThis Data was Submitted to [facility] [employer]. Medications Medication Brand Name Start Date Product Form Dose Route Admi nistrative Instructions Pharmacy Instructions Status Indications Reaction Description Data Source(s) Acetaminophen 325 MG / Hydrocodone Bitartrate 5 MG Ora l Tablet Hydrocodone-Acetaminophen 08/08/2020 12:00:00 AM EDT ORAL completed [facility] ([facility]) Omeprazole 40 MG Delayed Release Oral Capsule Omeprazole 40 MG 06/13/2020 12:00:00 AM EST active Omeprazo le 40 MG eCW1 ([facility]) Omeprazole 40 MG Delayed Release Oral Capsule Omeprazole 40 MG 06/13/2020 12:00:00 AM EST active Omeprazo le 40 MG eCW1 ([facility]) Omeprazole 40 MG Delayed Release Oral Capsule Omeprazole 40 MG 06/13/2020 12:00:00 AM EST active Omeprazo le 40 MG eCW1 ([facility]) Fluconazole 150 MG Oral Tablet [Diflucan] Diflucan 150 MG Di flucan 150 MG 04/30/2020 12:00:00 AM EST 1.0 {tablet} active Diflucan 150 MG eCW1 ([facility]) NITROFURANTOIN, MACROCRYSTALS 100 MG Ora l Capsule [Macrodantin] Macrodantin 100 MG Macrodantin 100 MG 04/30/2020 12:00:00 AM EST active Macrodantin 100 MG eCW1 ([facility]) NITROFURANTOIN, MACROCRYSTALS 100 MG Ora l Capsule [Macrodantin] Macrodantin 100 MG Macrodantin 100 MG 04/30/2020 12:00:00 AM EST active Macrodantin 100 MG eCW1 ([facility]) Fluconazole 150 MG Oral Tablet [Diflucan] Diflucan 150 MG Di flucan 150 MG 04/30/2020 12:00:00 AM EST 1.0 {tablet} active Diflucan 150 MG eCW1 ([facility]) Amoxicillin 875 MG Oral Tablet Amoxicillin 03/22/2020 12:00:00 AM EST active MED[facility] ([facility]) Prednisone 20 MG Oral Tablet Prednisone 03/20/2020 12:00:00 AM EST active MED[facility] ([facility]) Insurance Providers Payer name Policy type / Coverage type Policy ID Covered democrat ID Covered democrat's relationship to pichardo Policy Pichardo Plan Information [facility] [id number] [facility] [id number] ANSI-Commercial [id number] ANSI-Not a Secondary Insurance [id number] ANSI-Commercial [id number] ANSI-Commercial [id number] ANSI-Not a Secondary Insurance [id number] ANSI-Not a Secondary Insurance [id number] ANSI-Commercial [id number] ANSI-Commercial [id number] r/[facility] Health Maintenance Organization (O) [id number] Self [id number] [facility] Health Maintenance Organization (O) [id number] Self [id number] ANSI-Commercial [id number] ANSI-Not a Secondary Insurance [id number] r (pr) Commercial [id number] Self [id number] [facility] [id number] SP [id number] [employer] (pr) Commercial [id number] [facility] (HMO) [id number] [facility] (pr) Commercial [id number] Self [id number] [employer] (pr) Commercial [id number] Self [id number] [facility] [id number] SP [id number] [employer] (pr) Commercial [id number] Self [id number] ANSI-Commercial [id number] Problems, Conditions, and Diagnoses Code Display Name Description Problem Type Effective Dates Data Source(s) Z68.42 350866999 BMI 45.0-49.9, adult Problem 01/09/2021 12:0 0:00 AM EDT eCW1 ([facility]) Surgeries/Procedures Procedure Description Date Indications Data Source(s) OFFICE OUTPATIENT NEW 45 MINUTES 01/25/2021 12:00:00 A M [facility] Laparoscopy,Surgical;Cholecystectomy 08/17/2020 12:00: 00 AM [facility] Results ID Date Data Source [id number] 08/17/2020 10:30:00 AM [facility] Name Value Range Interpretation Code Description Data Gala rce(s) Supporting Document(s) Surgical pathology study 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 Comment: Clinical history of biliary dyskinesia is noted. 08/20/2020954 CLINICAL DIAGNOSIS Biliary dyskinesia 08/20/2020718 GROSS DIAGNOSIS Received in formalin labeled "gallbladder and contents" and consists of a 6 x 3 x 2 cm. The specimen is opened to reveal benign mucosa. No gallstones are identified. No polypoid or mass lesion is identified. Business Machine Mechanic sections submitted in one. -OA 08/20/2020 - 0719 Signed PASQUALE GOOD MD 08/20/2020 0955 ID Date Data Source [id number] 08/12/2020 09:00:00 AM EDT [facility] Name Value Range Interpretation Code Description Data Gala rce(s) Supporting Document(s) SARS-CoV-2 (COVID-19) RNA [Presence] in Respiratory specimen by TED with probe detection Not Detected [facility] This lab was ordered by [facility] and reported by [employer]. ID Date Data Source Urinalysis, no micro 04/30/2020 12:00:00 AM EST eCW1 ([facility]) Name Value Range Interpretation Code Description Data Gala rce(s) Supporting Document(s) ++ Negative - Leukocyte eCW1 ([facility]) Negative Negative - Nitrate eCW1 ([facility]) 5 5.0 - 9.0 pH eCW1 ([facility]) 1.020 1.002 - 1.035 Spec gravity eCW1 ([facility]) Normal Negative - mg/dl Glucose eCW1 ([facility]) Trace Negative - mg/dl Protein eCW1 ([facility]) Negative Negative - mg/dl Ketones eCW1 ([facility]) About 50 Negative - Blood eCW1 ([facility]) Normal Normal - mg/dl Urobili eCW1 ([facility]) Yes Internal QC Acceptable (Y/N) e CW1 ([facility]) Negative Negative - Bilirubin eCW1 ([facility]) ID Date Data Source [id number] 03/20/2020 11:58:00 AM EST [facility] ([facility]) Name Value Range Interpretation Code Description Data Gala rce(s) Supporting Document(s) Ebv Viral Capsid Ag IgM Laboratory test result 0.0-35.9 [facility] ([facility]) pending EBV Ebv Viral Capsid Ag IgG Laboratory test result 0.0-17.9 [facility] ([facility]) pending EBV Ebv AB To Nuclear Antigen Laboratory test result 0.0-17.9 [facility] ([facility]) pending EBV Ebv Interpretation Laboratory test result [facility] ([facility]) pending EBV ID Date Data Source [id number] 03/20/2020 11:58:00 AM EST [facility] ([facility]) Name Value Range Interpretation Code Description Data Gala rce(s) Supporting Document(s) Glucose, Fasting 81 mg/dL 70-100 [facility] ([facility]) pending EBV Blood Urea Nitrogen 9 mg/dL 7-18 [facility] ([facility]) pending EBV Glomerular Filtration Rate Laboratory test result [facility] ([facility]) pending EBV Creatinine For GFR 0.69 mg/dL 0.55-1.30 [facility] ([facility]) pending EBV Potassium Serum 4.3 meq/L 3.5-5.1 [facility] ([facility]) pending EBV Sodium Level 138 meq/L 136-145 [facility] ([facility]) pending EBV Chloride Level 105 meq/L 98-107 [facility] ([facility]) pending EBV Anion Gap 5 meq/L 8-16 [facility] ([facility]) pending EBV Carbon Dioxide Level 28 meq/L 21-32 MED[facility] ([facility]) pending EBV Alt/SGPT 27 U/L 12-78 [facility] ([facility]) pending EBV Ast/Sgot 18 U/L 7-37 [facility] ([facility]) pending EBV Calcium Level 8.9 mg/dL 8.5-10.1 [facility] ([facility]) pending EBV Alkaline Phosphatase 94 U/L 45-117 [facility] ([facility]) pending EBV Total Protein 8.0 GM/DL 6.4-8.2 [facility] ([facility]) pending EBV Bilirubin,Total 0.5 mg/dL 0.2-1.0 [facility] ([facility]) pending EBV Albumin 3.8 GM/DL 3.2-5.2 [facility] ([facility]) pending EBV Albumin/Globulin Ratio 0.9 1.2-2.2 [facility] ([facility]) pending EBV ID Date Data Source [id number] 03/20/2020 11:58:00 AM EST [facility] ([facility]) Name Value Range Interpretation Code Description Data Gala rce(s) Supporting Document(s) White Blood Count 10.1 10 4.0-10.0 MED[facility] ([facility]) pending EBV Red Blood Count 4.70 10 4.00-5.40 MED[facility] ([facility]) pending EBV Hematocrit 40.3 % 36.0-47.0 [facility] ([facility]) pending EBV Hemoglobin 12.7 g/dL 12.0-15.5 [facility] ([facility]) pending EBV Mean Corpuscular Volume 85.7 fl 80.0-96.0 M EDENT ([facility]) pending EBV Mean Corpuscular HGB Conc 31.5 g/dL 32.0-36.5 [facility] ([facility], [facility]) pending EBV Mean Corpuscular Hemoglobin 27.0 pg 27.0-33.0 [facility] ([facility], [facility]) pending EBV Platelet Count, Automated 384 10 150-450 MED[facility] ([facility], [facility]) pending EBV Red Cell Distribution Width 13.9 % 11.5-14.5 [facility] ([facility]) pending EBV Lymph % 36.6 % 24.0-44.0 [facility] ([facility]) pending EBV Hardin % 5.3 % 0.0-5.0 [facility] ([facility]) pending EBV Neutrophils % 55.6 % 36.0-66.0 MED[facility] ([facility], [facility]) pending EBV Baso % 0.5 % 0.0-1.0 MED[facility] ([facility]) pending EBV Immature Granulocyte % 0.2 % 0-3.0 [facility] ([facility]) pending EBV Eos % 1.8 % 0.0-3.0 [facility] ([facility]) pending EBV Nucleated Red Blood Cell % 0.6 % 0-0 MED [facility] ([facility]) pending EBV Neutrophils # 5.6 10 1.5-8.5 MED[facility] ([facility]) pending EBV Lymph # 3.7 10 1.5-5.0 MED[facility] ([facility]) pending EBV Eos # 0.2 10 0.0-0.5 [facility] ([facility]) pending EBV Hardin # 0.5 10 0.0-0.8 [facility] ([facility]) pending EBV Baso # 0.1 10 0.0-0.2 [facility] ([facility]) pending EBV ID Date Data Source [id number] 03/20/2020 11:53:00 AM EST [facility] ([facility]) Name Value Range Interpretation Code Description Data Gala rce(s) Supporting Document(s) Bacteria identified in Throat by Culture Laboratory test result [facility] ([facility]) Rx Amoxil today..pending EBV ID Date Data Source [id number] 02/21/2020 02:07:00 PM EDT [facility] ([facility]) Name Value Range Interpretation Code Description Data Gala rce(s) Supporting Document(s) Bacteria identified in Throat by Culture Laboratory test result MEDENT ([facility]) FULL REPORT IN LAB NOTES (eCW and Medent ). NORMAL JOSE PRESENT ID Date Data Source [id number] 02/21/2020 12:00:00 AM EDT [facility] Name Value Range Interpretation Code Description Data Gala rce(s) Supporting Document(s) SARS coronavirus 2 Ag [facility] This lab was ordered by [facility] and reported by [facility]. Procedure Social History Code Duration Value Status Description Data Source(s ) Smoking 01/09/2021 12:00:00 AM EDT Never Smoker completed Never S moker eCW1 ([facility]) Smoking 08/15/2020 12:00:00 AM EDT Never Smoker completed Never S moker eCW1 ([facility]) Smoking 08/15/2020 12:00:00 AM EDT Never Smoker completed Never S moker eCW1 ([facility]) Smoking 06/13/2020 12:00:00 AM EST Never Smoker completed Never S moker eCW1 ([facility]) Smoking 04/30/2020 12:00:00 AM EST Never Smoker completed Never S moker eCW1 ([facility]) Smoking 04/30/2020 12:00:00 AM EST Never Smoker completed Never S moker eCW1 ([facility]) Smoking 03/20/2020 12:00:00 AM EST Patient has never smoked co mpleted Patient has never smoked MEDENT ([facility], [facility]) Vital Signs ID Date Data Source UNK Name Value Range Interpretation Code Description Data Source(s) Body surface area Derived from formula 2.23 m2 2.23 m2 [facility] ([facility]) Body height 63.5 [in_i] 63.5 [in_i] [facility] ([facility]) 5'3.50" Body weight 277.00 [lb_av] 277.00 [lb_av] MEDEN T ([facility]) Body mass index (BMI) [Ratio] 48.3 kg/m2 48.3 k g/m2 [facility] ([facility]) [place] body weight 115 [lb_av] 115 [lb_av] MEDEN T ([facility]) Body weight 125.647 kg 125.647 kg [facility] ([facility]) Body weight 276.2 [lb_av] 276.2 [lb_av] eCW1 ([facility]) Body weight 125.28 kg 125.28 kg eCW1 ([facility]) Body height [in_i] eCW1 ([facility]) Body mass index (BMI) [Ratio] 48.92 kg/m2 48.92 kg/m2 eCW1 ([facility]) Heart rate 108 /min 108 /min eCW1 ([facility]) Respiratory rate 18 /min 18 /min eCW1 ([facility]) Body temperature 98.1 [degF] 98.1 [degF] eCW1 ( [facility]) Systolic blood pressure 124 mm[Hg] 124 mm[Hg] e CW1 ([facility]) Diastolic blood pressure 84 mm[Hg] 84 mm[Hg] eCW1 ([facility]) Systolic blood pressure 153 mm[Hg] 153 mm[Hg] M EDENT ([facility], [facility]) Diastolic blood pressure 94 mm[Hg] 94 mm[Hg] MEDENT ([facility], [facility]) Heart rate 96 /min 96 /min MEDENT ([facility]) Respiratory rate 15 /min 15 /min MEDENT ( [facility], [facility]) Oxygen saturation in Arterial blood by Pulse oximetry 99 % 99 % MEDENT ([facility], [facility]) Body temperature 97.8 [degF] 97.8 [degF] MEDENT ([facility], [facility]) Body weight 280.00 [lb_av] 280.00 [lb_av] MEDEN T ([facility], [facility]) Body height 63 [in_i] 63 [in_i] MEDENT ([facility], [facility]) 5'3" Body mass index (BMI) [Ratio] 49.6 kg/m2 49.6 k g/[facility]) Systolic blood pressure 131 mm[Hg] 131 mm[Hg] M EDENT ([facility], ) Body weight 275.00 [lb_av] 275.00 [lb_av] MEDEN T ([facility], ) Body mass index (BMI) [Ratio] 47.9 kg/m2 47.9 k g/m2 [facility] ([facility], ) [place] body weight 115 [lb_av] 115 [lb_av] MEDEN T ([facility]) Body weight 124.740 kg 124.740 kg [facility] Body surface area Derived from formula 2.23 m2 2.23 m2 [facility] ([facility]) Body height 63.5 [in_i] 63.5 [in_i] [facility] ([facility]) 5'3.50" Diastolic blood pressure 85 mm[Hg] 85 mm[Hg] [facility] ([facility]) Body height 63.5 [in_i] 63.5 [in_i] [facility] ([facility]) 5'3.50" Body weight 275.00 [lb_av] 275.00 [lb_av] MEDEN T ([facility]) Body mass index (BMI) [Ratio] 47.9 kg/m2 47.9 k g/m2 [facility] ([facility]) [place] body weight 115 [lb_av] 115 [lb_av] MEDEN T ([facility]) Body weight 124.740 kg 124.740 kg [facility] ([facility]) Body surface area Derived from formula 2.23 m2 2.23 m2 [facility] ([facility]) Body weight 275.0 [lb_av] 275.0 [lb_av] eCW1 ([facility]) Heart rate 110 /min 110 /min eCW1 ([facility]) Respiratory rate 18 /min 18 /min eCW1 ([facility]) Body temperature 98.1 [degF] 98.1 [degF] eCW1 ( [facility]) Systolic blood pressure 120 mm[Hg] 120 mm[Hg] e CW1 ([facility]) Diastolic blood pressure 86 mm[Hg] 86 mm[Hg] eCW1 ([facility]) Body height [in_i] eCW1 ([facility]) Body mass index (BMI) [Ratio] 48.71 kg/m2 48.71 kg/m2 eCW1 ([facility]) Systolic blood pressure 120 mm[Hg] 120 mm[Hg] M EDENT ([facility]) Diastolic blood pressure 89 mm[Hg] 89 mm[facility]] [facility] Body height 63.5 [in_i] 63.5 [in_i] [facility] ([facility]) 5'3.50" Body weight 282.38 [lb_av] 282.38 [lb_av] MEDEN T ([facility]) Body mass index (BMI) [Ratio] 49.2 kg/m2 49.2 k g/m2 [facility] ([facility]) [place] body weight 115 [lb_av] 115 [lb_av] MEDEN T ([facility]) Body weight 128.085 kg 128.085 kg [facility] ([facility]) Body surface area Derived from formula 2.25 m2 2.25 m2 [facility] ([facility]) Body weight 273.6 [lb_av] 273.6 [lb_av] eCW1 ([facility]) Body mass index (BMI) [Ratio] 48.46 kg/m2 48.46 kg/m2 eCW1 ([facility]) Heart rate 104 /min 104 /min eCW1 ([facility]) Respiratory rate 18 /min 18 /min eCW1 ([facility]) Body temperature 97.9 [degF] 97.9 [degF] eCW1 ( [facility]) Systolic blood pressure 120 mm[Hg] 120 mm[Hg] e CW1 ([facility]) Diastolic blood pressure 90 mm[Hg] 90 mm[Hg] eCW1 ([facility]) Body height [in_i] eCW1 ([facility]) Body mass index (BMI) [Ratio] 49.59 kg/m2 49.59 kg/m2 eCW1 ([facility]) Body weight 280.0 [lb_av] 280.0 [lb_av] eCW1 ([facility]) Body height [in_i] eCW1 ([facility]) Heart rate 90 /min 90 /min eCW1 ([facility]) Respiratory rate 18 /min 18 /min eCW1 ([facility]) Body temperature 98.1 [degF] 98.1 [degF] eCW1 ( [facility]) Systolic blood pressure 134 mm[Hg] 134 mm[Hg] e CW1 ([facility]) Diastolic blood pressure 82 mm[Hg] 82 mm[Hg] eCW1 ([facility]) Body mass index (BMI) [Ratio] 49.6 kg/m2 49.6 k g/m2 MEDENT ([facility]) Body weight 280.00 [lb_av] 280.00 [lb_av] MEDEN T ([facility], [facility]) Body height 63 [in_i] 63 [in_i] MEDENT ([facility], [facility]) 5'3" Heart rate 96 /min 96 /min MEDENT ([facility]) Respiratory rate 16 /min 16 /min MEDENT ( [facility], [facility]) Oxygen saturation in Arterial blood by Pulse oximetry 98 % 98 % MEDENT ([facility], [facility]) Body temperature 99.7 [degF] 99.7 [degF] MEDENT ([facility], [facility]) Diastolic blood pressure 88 mm[Hg] 88 mm[facility]] [facility]) Systolic blood pressure 132 mm[Hg] 132 mm[Hg] M EDENT ([facility], [facility]) Systolic blood pressure 130 mm[Hg] 130 mm[Hg] M EDENT ([facility], [facility]) Body temperature 98.6 [degF] 98.6 [degF] MEDENT ([facility], [facility]) Body weight 280.00 [lb_av] 280.00 [lb_av] MEDEN T ([facility], [facility]) Body height 63 [in_i] 63 [in_i] MEDENT ([facility], [facility]) 5'3" Body mass index (BMI) [Ratio] 49.6 kg/m2 49.6 k g/m2 MEDENT ([facility], [facility]) Heart rate 100 /min 100 /min MEDENT ([facility], [facility]) Diastolic blood pressure 80 mm[Hg] 80 mm[Hg] MEDENT ([facility], [facility]) Respiratory rate 16 /min 16 /min MEDENT ( [facility], [facility]) Oxygen saturation in Arterial blood by Pulse oximetry 99 % 99 % MEDENT ([facility], [facility]) Patient Treatment Plan of Care Planned Activity Planned Date Details Description Data Source (s) Omeprazole 40 MG Delayed Release Oral Capsule 06/13/2020 12:00:00 A M EST eCW1 ([facility]) Omeprazole 40 MG Delayed Release Oral Capsule 06/13/2020 12:00:00 A M EST eCW1 ([facility]) Omeprazole 40 MG Delayed Release Oral Capsule 06/13/2020 12:00:00 A M EST eCW1 ([facility]) Fluconazole 150 MG Oral Tablet [Diflucan] 04/30/2020 12:00:00 AM ES T eCW1 ([facility]) NITROFURANTOIN, MACROCRYSTALS 100 MG Oral Capsule [Mac rodantin] 04/30/2020 12:00:00 AM EST eCW1 ([facility]) Fluconazole 150 MG Oral Tablet [Diflucan] 04/30/2020 12:00:00 AM ES T eCW1 ([facility]) NITROFURANTOIN, MACROCRYSTALS 100 MG Oral Capsule [Mac rodantin] 04/30/2020 12:00:00 AM EST eCW1 ([facility])
--- OUTSIDE RECORDS SUMMARY | 2021-03-14 07:59 | CCD | Continuity of Care Document ---
Author Author Diego KHAN MD Organization Unknown Address [address] [facility] [address] [place] [address] Phone [phone] Care Team Providers Care Decorator Mannequin Name Role Phone Servage, Libby Bradshaw R.N. AUTM [phone] AUTM Unavailable Problems Active Problems Provider Date Obstructive sleep apnea syndrome SY Raza Onset: 06/10/2017 Difficulty breathing SY Raza Onset: 05/20/2017 Disturbance of consciousness SY Raza Onset: 05/04 Social History Type Date Description Comments Sex Unknown ETOH Use Occasionally consumes alcohol Tobacco Use Start: Unknown Patient has never smoked Recreational Drug Use Denies Drug Use Allergies, Adverse Reactions, Alerts Active Allergies Criticality Reaction | Severity Comments Date Kennethhor Unable to assess criticality Skin Blisters 05/20/2017 Medications Active Medications SIG Qnty Indications Ordering Provide r Date Paxil 10mg Tablets 1 by mo uth every day Unknown Ibuprofen 600mg Tablets prn Unknown History Medications Hydrocodone-Acetaminophen 5-325mg Tablets One Tab PO Q6H as Needed For Post-Op Pain 10tabs K82.8 Kenyon Jacobo DO 08/08/2020 - 08/29/2020 Immunizations Description No Information Available Vital Signs Date Vital Result Comment 01/25/2021 3:29pm Height 63.5 inches 5'3.50" Weight 277.00 lb BMI (Body Mass Index) 48.3 kg/m2 [place] Body Weight 115 lb Weight 125.647 kg BSA (Body Surface Area) 2.23 m2 08/30/2020 10:15am BP Systolic 131 mmHg BP Diastolic 85 mmHg Height 63.5 inches 5'3.50" Weight 275.00 lb BMI (Body Mass Index) 47.9 kg/m2 [place] Body Weight 115 lb Weight 124.740 kg BSA (Body Surface Area) 2.23 m2 Results Test Acquired Date Facility Test Result H/L Range Note Laboratory test finding 08/17/2020 [facility] [address] [place] [address] [phone] Pathology Request For Service (SEE NOTE) 1 1 FINAL DIAGNOSIS Gallbladder, cholecystectomy: Cholesterolosis with mild chronic inflammation without entrapped epithelial crypts. Comment: Clinical history of biliary dyskinesia is noted. 08/20/2020 - 954 CLINICAL DIAGNOSIS Biliary dyskinesia 08/20/2020718 GROSS DIAGNOSIS Received in formalin labeled "gallbladder and contents" and consists of a 6 x 3 x 2 cm. The specimen is opened to reveal benign mucosa. No gallstones are identified. No polypoid or mass lesion is identified. Estate Administrator sections submitted in one. -OA 08/20/2020718 Signed PASQUALE GOOD MD 08/20/2020 0955 Procedures Date Code Description Status 08/17/2020 38130 Laparoscopy,Surgical;Cholecystec rena Completed Medical Devices Description No Information Available Encounters Type Date Location Provider Dx Diagnosis Office Visit 08/30/2020 10:00a [facility] SY Cohen K81.1 Chronic cholecystitis Z48.815 Encntr for surgical aftcr fo llowing surgery on the dgstv sys Z90.49 Acquired absence of other sp ecified parts of digestive tract Assessments Date Code Description Provider 01/25/2021 J35.01 Chronic tonsillitis John Paul Khan MD 08/30/2020 K81.1 Chronic cholecystitis SY Alejandra 08/30/2020 Z48.815 Encounter for surgic al aftercare following surgery on the digestive system SY Luna 08/30/2020 Z90.49 Acquired absence of other specif ied parts of digestive tract SY Luna 08/17/2020 K82.8 Other specified diseases of gall bladder Kenyon Jacobo DO 08/17/2020 K81.1 Chronic cholecystitis Kenyon Jacobo DO Plan of Treatment No Information Available Functional Status Functional Condition Comment Date Status Independent with all ADL's Activ e Independent with all IADL's Acti ve Mental Status Mental Condition Comment Date Status Cognitive ability not impaired A ctive Referrals Description No Information Available
--- OUTSIDE RECORDS SUMMARY | 2021-03-14 07:59 | CCD ---
Author Author [facility] Organization [facility] Address Unknown Phone Unavailable Care Team Providers Care Printed Circuit Boards Stripper Etcher Name Role Phone Amiage Libby Unavailable PROBLEMS Type Condition ICD9-CM Code GIW95-EB Code Onset Dates Condition S tatus W/U Status Risk SNOMED Code Notes Problem Premenstrual dysphoric syndrome F32.89 Active confi rmed 948612 Problem Obstructive sleep apnea (adult) (pediatric) G47.33 Active confirmed 01197118 Problem BMI 45.0-49.9, adult Z68.42 Active confirmed 490126760 Problem Obesity, morbid, BMI 40.0-49.9 E66.01 Active confir med 119610142 Problem Fatigue, unspecified type R53.83 Active confirmed 70483339 Problem Pain in left shoulder M25.512 Active confirmed 65844850 Problem 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 Active confirmed 384197150 ALLERGIES Allergen (clinical drug ingredient) Drug/Non Drug Allergy do cumented on EMR Reaction Allergy Type Onset Date Status Camphor melts skin Drug Allergy Active sertraline Zoloft([facility] Code:[address]-77) crawling feeling of ski n Drug Allergy Active ENCOUNTERS from 1984 to 2021-01-10 Encounter Location Date Provider Diagnosis [address] [phone] [place] [address] 08 Jan, 2021 Libby Servage Obstructive sleep apnea (loyd lt) (pediatric) G47.33 ; Well adult exam Z00.00 ; Premenstrual dysphoric syndrome F32.89 ; History of recurrent tonsillitis Z87.09 ; Epigastric pain R10.13 and BMI 45.0-49.9, adult Z68.42 IMMUNIZATIONS Vaccine Route Administration Date Status Influenza 6mo & up Fluzone Unknown Feb 05, 2017 Admin istered SOCIAL HISTORY Tobacco Use: Social History Observation Description Date Details (start date - stop date) Never Smoker Sex Assigned At : Social History Observation Description Sex Assigned At Unknown Education: Question Answer Notes Level of Education: College Audit Question Answer Notes Total Score: 1 Interpretation: Alcohol Education Language: Question Answer Notes Languages spoken: Uzbek Yarsanism: Question Answer Notes Yarsanism 33 None No orthodoxy beliefs that would impact health care. Domestic Violence: Question Answer Notes Status: Does the patient divulge that the partner hit them? No Does the patient divulge that the partner hits the chi ldren in the household? No Does the patient consider the partner abusive? No Has the patient ever been in a situation involving domestic violence? No Has the patietn ever been injured, homeb ound, or hospitalized due to an altercation with significant other? No Sexual Hx: Question Answer Notes Had sex in the last 12 months (vaginal, oral, or anal)? Yes Have you ever had an STD? No Prevention Strategies discussed: Other with Men only Use protection? No Drug and Alcohol Question Answer Notes Total Score: 0 Interpretation: No problems reported Alcohol Screening: Question Answer Notes Did you have a drink containing alcohol in the past year? No Points 0 Interpretation Negative BMI Care Goal Follow-Up Question Answer Notes Above Normal BMI Follow-Up Dietary management educatio n, guidance, and counseling Tobacco Use: Question Answer Notes Are you a: never smoker REASON FOR REFERRAL from 1984 to 2021-01-10 Reason please eval and treat 35 yr old female with a history of recurrent tonsilitis to the poit she can only swallow broth with it occurs Diagnosis 1 History of recurrent tonsill itis (Z87.09) Referral Organization [facility] Giuliana Referring Provider First Name Libby Referring Provider Last Name Servage Referring Provider Specialty Family Medicine Referred Provider Ian Griffith Referred Provider Specialty Otolaryngology Referral Priority Routine General Notes Vanessa Moses 01/09/2021 5:09 :13 PM > referral faxed VITAL SIGNS Weight 276.2 lbs Jan, Weight-kg 125.28 kg Jan, Height 5'3" in Jan, BMI 48.92 kg/m2 Jan, Heart Rate 108 /min Jan, Respiratory Rate 18 /min Jan, Temperature 98.1 degrees Fahrenheit Jan, Oximetry 99 Jan, Blood pressure systolic 124 mm Hg Jan, Blood pressure diastolic 84 mm Hg Jan, MEDICATIONS Medication SIG (Take, Route, Frequency, Duration) Notes Start Da te End Date Status BuSpar 10 MG 1 tablet Orally three times daily as needed Active Paxil 20 mg TAKE ONE TABLET BY MOUTH IN THE MORNING ONCE A DAY Orally Once a day for 90 Active Paxil 20 mg 1 tablet Orally Once a day Active PROCEDURES No Information RESULTS No Results REASON FOR VISIT with Michelle Agarwal in 01/2021 MEDICAL (GENERAL) HISTORY Type Description Date Medical History JAYMIE-does not use CPAP machine Medical History PMDD Medical History Reflux (improved after cholecystectomy_ Medical History Recurrent tonsillitis Surgical History wisdom teeth 2 Surgical History Left Shoulder Arthroscopy- PR OG 08/2017 Surgical History Cholecystectomy 08/2020 Hospitalization History child x 2 at [facility] 2006,2014 Goals Section No Information Health Concerns No Information MEDICAL EQUIPMENT No Information MENTAL STATUS No Information FUNCTIONAL STATUS No Information ASSESSMENTS Encounter Date Diagnosis Assessment Notes Treatment Notes Treatm ent Clinical Notes Jan, Obstructive sleep apnea (adult) (pediatric) (ICD -10 - G47.33) Tested positive for sleep apnea, cannot tolerate mask Jan, Well adult exam (ICD-10 - Z00.00) age appropriate anticipatory guidance given, per USPSTF recommendations; immunizations up to date. discussed plans for implementing improvement in identified areas Jan, Premenstrual dysphoric syndrome (ICD-10 - F32.89 ) Using Paxil daily with affect denies suicidal thoughts, has BuSpar to utilize on a as needed basis, states she has not used it lately Jan, History of recurrent tonsillitis (ICD-10 - Z87.0 9) After discussion with patient, will refer to ENT for further evaluation and treatment, question if she is eligible for tonsillectomy Jan, Epigastric pain (ICD-10 - R10.13) resolved after gallbladder was removed Jan, BMI 45.0-49.9, adult (ICD-10 - Z68.42) Has lost weight since her last visit, encouraged to continue pattern Jan, Other 1 year annual w cathie recommended, will contact the office if she has any issues in the interim PLAN OF TREATMENT Medication Medication Name Sig Start Date Stop Date BuSpar 10 MG 1 tablet Orally three times daily as needed Paxil 20 mg 1 tablet Orally Once a day Treatment Notes Assessment Notes Clinical Notes Obstructive sleep apnea (adult) (pediatric) Tested positive for sleep apnea, cannot tolerate mask Well adult exam age appropriate anti cipatory guidance given, per USPSTF recommendations; immunizations up to date. discussed plans for implementing improvement in identified areas Premenstrual dysphoric syndrome Using Pa xil daily with affect denies suicidal thoughts, has BuSpar to utilize on a as needed basis, states she has not used it lately History of recurrent tonsillitis After d iscussion with patient, will refer to ENT for further evaluation and treatment, question if she is eligible for tonsillectomy Epigastric pain resolved after gallb ladder was removed BMI 45.0-49.9, adult Has lost weight sin ce her last visit, encouraged to continue pattern Referrals Referral Date Details please eval and treat 35 yr old female with a history of recurrent tonsilitis to the poit she can only swallow broth with it occurs, Ian Griffith Next Appt Details 1 Year annual well exam Reason: Provider Name:Libby Agarwal, 04:00:00 PM, [address], , [place], [address], Insurance Providers Payer Name Payer Address Payer Phone Insured Name Patient Relati onship to Insured Coverage Start Date Coverage End Date [facility] [address] [address] [facility] [phone] [employer] self
[2021-03-14] MEDS ORDERED: fentaNYL 250 MCG/5 ML INJECTION (J3010) As Ordered ONE (08:55)
[2021-03-14] MEDS ORDERED: MIDAZOLAM INJ 2MG/2ML VIAL (J2250 PER 1MG) As Ordered ONE (08:55)
[2021-03-14] MEDS ORDERED: propofoL 200 MG/20 ML VIAL As Ordered ONE (08:55)
[2021-03-14] MEDS ORDERED: LIDOCAINE 2% 100MG/5ML SDV (FOR ANES.) As Ordered ONE (08:55)
[2021-03-14] MEDS ORDERED: ROCURONIUM BROMIDE 50 MG/5 ML VIAL As Ordered ONE (08:55)
[2021-03-14] MEDS ORDERED: OXYMETAZOLINE 0.05% NASAL SPRAY (AFRIN) As Ordered ONE (10:00)
[2021-03-14] MEDS ORDERED: METOCLOPRAMIDE INJ 10MG/2ML VIAL (J2765 PER 1) As Ordered ONE (10:41)
[2021-03-14] MEDS ORDERED: ONDANSETRON 4MG/2ML VIAL As Ordered ONE (10:41)
[2021-03-14] MEDS ORDERED: KETOROLAC 60MG 2ML VIAL As Ordered ONE (10:41)
[2021-03-14] MEDS ORDERED: ACETAMINOPHEN 1000MG 100ML IV BTL (OFIRMEV) (J0131 PER 10MG) As Ordered ONE (10:41)
[2021-03-14] MEDS ORDERED: SUGAMMADEX SODIUM 500 MG/5 ML VIAL (BRIDION) As Ordered ONE (10:47)
[2021-03-14] MEDS ORDERED: ONDANSETRON 4MG/2ML VIAL IV PRN (11:45)
[2021-03-14] MEDS ORDERED: oxyCODONE 5MG TAB PO PRN (11:45)
[2021-03-14] MEDS ORDERED: fentaNYL 100 MCG/2 ML INJECTION (J3010) IV PRN (11:45)
[2021-03-14] MEDS ORDERED: LR 1,000 ML IV SCH (11:45)
[2021-03-14] MEDS ORDERED: METOCLOPRAMIDE INJ 10MG/2ML VIAL (J2765 PER 1) IV PRN (11:45)
[2021-03-14 12:05] VITALS: BP 136/86
--- NOTE | 2021-03-15 07:47 | RO ---
OPERATIVE NOTE DATE OF OPERATION: 03/14/2021 PREOPERATIVE DIAGNOSIS: Chronic tonsillitis. POSTOPERATIVE DIAGNOSIS: Chronic tonsillitis. PROCEDURE PERFORMED: Tonsillectomy. SURGEON: SHIKHA KHAN MD ANESTHESIA: General. CLINICAL PREAMBLE: This is a 35-year-old woman who presented to the office with a history of chronic tonsillitis. Physical examination revealed cryptic tonsils. Management options including tonsillectomy have been discussed. The patient understood and consented to the procedure. DESCRIPTION OF PROCEDURE: Patient was identified in preoperative holding and brought to the operating room in stable condition. In supine position on the operating table, patient received general anesthesia followed by orotracheal intubation without incident. Patient was prepped and draped in the usual fashion for the procedure. The Cecile-Alessandro mouth gag was inserted and suspended. The right tonsil was medialized using curved Allis forceps. Mucosal incision was made over the superior pole of the right tonsil using the Coblator wand set at 7 for Coblation. The tonsillar capsule was identified, and dissection was carried out along this plane to excise the right tonsil. The left tonsil was then similarly dissected out. At the end of the procedure, both tonsil beds were free of bleeding. Estimated blood loss was less than 10 mL. No complication was encountered. Sponge and instrument counts were correct at the end of the procedure. General anesthesia was reversed, and patient was extubated and brought to the recovery room in stable condition.
== END 2021-03-14 15:02 | disposition home or self-care (01) ==
LOC: M SDC 07:55
PROVIDERS: ATTEND Otolaryngology
DX: J35.01 Chronic tonsillitis (principal); E66.9 Obesity, unspecified; D64.9 Anemia, unspecified; Z79.899 Other long term (current) drug therapy; G47.33 Obstructive sleep apnea (adult) (pediatric)
CPT/HCPCS: 42826; 81025; 88302; J0131; J1100; J1885; J2250; J2405; J2765; J3010

== ENCOUNTER → 2022-01-22 | Outpatient (REF) | payer OTHER ==
[~2022-01-22] MED LIST changes: -LIDOCAINE 1% MDV 20ML VIAL SQ PRN; -LR 1,000 ML IV ONE; -dexameTHASONE 4 MG/ML 1ML VIAL (J1100 PER 1MG) IV ONE
== END ==
LOC: M LAB REF 12:05
PROVIDERS: ATTEND Physician Assistant Medical
DX: J06.9 Acute upper respiratory infection, unspecified (principal); Z20.828 Contact with and (suspected) exposure to other viral communicable diseases

== ENCOUNTER → 2022-02-07 | Outpatient (CLI) | payer OTHER ==
[2022-02-07 14:33] LABS: ALBUMIN 3.6 GM/DL (3.2-5.2); ALT/SGPT 27 U/L (12-78); BILIRUBIN,TOTAL 0.5 MG/DL (0.2-1.0); BLOOD UREA NITROGEN 7 MG/DL (7-18); CALCIUM LEVEL 8.8 MG/DL (8.5-10.1); CARBON DIOXIDE LEVEL 27 MEQ/L (21-32); CHLORIDE LEVEL 102 MEQ/L (98-107); CHOLESTEROL LEVEL 215 MG/DL (<200); CHOLESTEROL RISK RATIO 4.215 (<5); CREATININE FOR GFR 0.63 MG/DL (0.55-1.30); GLOMERULAR FILTRATION RATE > 60.0 (>60); GLUCOSE, FASTING 87 MG/DL (70-100); HDL CHOLESTEROL 51 MG/DL (>40); LDL CHOLESTEROL 133 MG/DL (<100); NON-HDL-C 164 MG/DL; SODIUM LEVEL 135 MEQ/L (136-145); THYROID STIMULATING HORMONE 0.966 uIU/ML (0.358-3.740); TOTAL PROTEIN 7.7 GM/DL (6.4-8.2); TRIGLYCERIDES LEVEL 155 MG/DL (<150)
[2022-02-07 16:13] LABS: HEMOGLOBIN A1c 5.3 %
== END ==
LOC: M PLALAB 09:50
PROVIDERS: ATTEND Nurse Practitioner Adult Health
DX: Z13.220 Encounter for screening for lipoid disorders (principal)

== ENCOUNTER → 2022-03-04 | Outpatient (REF) | payer OTHER ==
[2022-03-04 19:08] LABS: APPEARANCE, URINE MANUAL CLEAR (CLEAR); BILIRUBIN, URINE MANUAL NEGATIVE (NEGATIVE); BLOOD URINE MANUAL TRACE (NEGATIVE); COLOR, URINE MANUAL YELLOW (YELLOW); GLUCOSE, URINE (UA) MANUAL NEGATIVE (NEGATIVE); KETONE, URINE MANUAL NEGATIVE (NEGATIVE); LEUKOCYTE ESTERASE, URINE MAN POSITIVE (NEGATIVE); NITRITE, URINE MANUAL NEGATIVE (NEGATIVE); PROTEIN, URINE MANUAL TRACE mg/dL (NEGATIVE); SPECIFIC GRAVITY,URINE MANUAL 1.015 (1.002-1.035); UROBILINOGEN, URINE MANUAL NORMAL (NORMAL)
[2022-03-04 20:14] LABS: BACTERIA, URINE LARGE AMOUNT; SQUAMOUS EPITHELIAL CELL URINE LARGE AMOUNT /hpf (SMALL AMT); WBC, URINE 40-50 /hpf (0-3)
[2022-03-04 20:15] LABS: YEAST, URINE SMALL AMOUNT
== END ==
LOC: M SFHCPLAZ 17:04
PROVIDERS: ATTEND Nurse Practitioner Family
DX: N39.0 Urinary tract infection, site not specified (principal)

== ENCOUNTER 2023-08-02 16:07 | Emergency (ER) | payer OTHER, SELFPAY ==
[~2023-08-02] VITALS: Ht 160 cm; Wt 130.3 kg
[~2023-08-02 16:07] MED LIST changes: +DICY-61 PO; -DICY10CA13 PO; -PAXI20TA29 PO; +PAXI20TA30 PO
[2023-08-02] MEDS: predniSONE 20 MG TAB PO ONE (17:26)
[2023-08-02] MEDS: IPRATROPIUM 0.5MG/ALBUTEROL 2.5MG INH SOL UD 3ML (DUONEB) NEB ONE (17:34)
[2023-08-02] MEDS: IBUPROFEN 600MG TAB PO ONE (18:45)
[2023-08-02] MEDS: NS 1,000 ML IV ONE (18:45)
[2023-08-02 18:50] LABS: BASO % 0.3 % (0.0-1.0); EOS # 0.2 10^3/uL (0.0-0.5); EOS % 1.8 % (0.0-3.0); HEMATOCRIT 37.4 % (36.0-47.0); LYMPH # 1.4 10^3/uL (1.5-5.0); LYMPH % 14.6 % (24.0-44.0); MEAN CORPUSCULAR HEMOGLOBIN 27.2 pg (27.0-33.0); MEAN CORPUSCULAR HGB CONC 32.1 g/dl (32.0-36.5); MEAN CORPUSCULAR VOLUME 84.8 fl (80.0-96.0); MONO # 0.3 10^3/uL (0.0-0.8); MONO % 2.9 % (2.0-8.0); NEUTROPHILS # 7.4 10^3/uL (1.5-8.5); NEUTROPHILS % 79.6 % (36.0-66.0); PLATELET COUNT, AUTOMATED 371 10^3/uL (150-450); RED BLOOD COUNT 4.41 10^6/uL (4.00-5.40); WHITE BLOOD COUNT 9.3 10^3/uL (4.0-10.0)
[2023-08-02 19:15] LABS: ALBUMIN 2.9 G/DL (3.2-5.2); ALKALINE PHOSPHATASE 119 U/L (46-116); ALT/SGPT 45 U/L (7.0-40); AST/SGOT 55 U/L (<34); BILIRUBIN,DIRECT 0.2 MG/DL (<0.4); BILIRUBIN,TOTAL 0.4 MG/DL (0.3-1.2); BLOOD UREA NITROGEN 9 MG/DL (9-23); CALCIUM LEVEL 8.7 MG/DL (8.5-10.1); CARBON DIOXIDE LEVEL 29 MMOL/L (20-31); CHLORIDE LEVEL 102 MMOL/L (98-107); CREATININE FOR GFR 0.67 MG/DL (0.55-1.30); GLOMERULAR FILTRATION RATE > 60.0 (>60); GLUCOSE, FASTING 125 MG/DL (60-100); POTASSIUM SERUM 4.2 MMOL/L (3.5-5.1); SODIUM LEVEL 136 MMOL/L (136-145); TOTAL PROTEIN 7.1 G/DL (5.7-8.2)
[2023-08-02] MEDS: AZITHROMYCIN 250MG TABLET PO ONE (19:30)
[2023-08-02] MEDS: cefTRIAXone SOD 1 GM in D5W MINI-BAG PLUS 50 ML IV ONE (19:47)
[2023-08-02] MEDS: diphenhydrAMINE 50MG/ML VIAL IV STA (20:05)
[2023-08-02] MEDS: ALBUTEROL SULFATE 2.5MG/0.5ML INH NEB SOLN NEB ONE (20:13)
[2023-08-02] MEDS ORDERED: PRED20TA PO (20:41)
[2023-08-02] MEDS ORDERED: AMOX875T2 PO (20:41)
[2023-08-02] MEDS ORDERED: ZITHTAB PO (20:41)
[2023-08-02 20:58] VITALS: BP 136/71; TEMP 98.4; O2SAT 95
[2023-08-02 21:00] VITALS: O2SAT 92
== END 2023-08-02 21:01 | disposition home or self-care (01) ==
LOC: M ED 16:07
DX: J18.1 Lobar pneumonia, unspecified organism (principal); F32.A Depression, unspecified; G47.33 Obstructive sleep apnea (adult) (pediatric); F12.10 Cannabis abuse, uncomplicated; Z88.1 Allergy status to other antibiotic agents; Z91.048 Other nonmedicinal substance allergy status; Z79.2 Long term (current) use of antibiotics; Z79.52 Long term (current) use of systemic steroids; Z79.899 Other long term (current) drug therapy
CPT/HCPCS: 71046; 80048; 80076; 83605; 85025; 87040; 87486; 87581; 87633; 87798; 94640; 96361; 96374; 96375; 99284; J0696; J1200; J7512

== ENCOUNTER → 2024-02-24 | Outpatient (CLI) | payer OTHER, SELFPAY ==
[~2024-02-24] MED LIST changes: +AMOX875T2 PO; +PRED20TA PO; +ZITHTAB PO
[2024-02-24 15:15] LABS: HEMATOCRIT 39.1 % (36.0-47.0); HEMOGLOBIN 12.4 g/dl (12.0-15.5); MEAN CORPUSCULAR HEMOGLOBIN 26.6 pg (27.0-33.0); MEAN CORPUSCULAR HGB CONC 31.7 g/dl (32.0-36.5); MEAN CORPUSCULAR VOLUME 83.7 fl (80.0-96.0); PLATELET COUNT, AUTOMATED 400 10^3/uL (150-450); RED BLOOD COUNT 4.67 10^6/uL (4.00-5.40); WHITE BLOOD COUNT 9.7 10^3/uL (4.0-10.0)
[2024-02-24 17:06] LABS: HEMOGLOBIN A1c 5.2 % (4.0-6.0)
[2024-02-24 17:19] LABS: IRON (FE) 46 UG/DL (50-170); TOTAL IRON BINDING CAPACITY 329 UG/DL (250-425)
[2024-02-24 17:33] LABS: ALBUMIN 3.7 G/DL (3.2-5.2); ALKALINE PHOSPHATASE 87 U/L (46-116); ALT/SGPT 24 U/L (7.0-40); AST/SGOT 17 U/L (<34); BILIRUBIN,TOTAL 0.5 MG/DL (0.3-1.2); BLOOD UREA NITROGEN 9 MG/DL (9-23); CALCIUM LEVEL 9.4 MG/DL (8.5-10.1); CARBON DIOXIDE LEVEL 27 MMOL/L (20-31); CHLORIDE LEVEL 106 MMOL/L (98-107); CHOLESTEROL LEVEL 205 MG/DL (<200); CHOLESTEROL RISK RATIO 4.41 (<5); CREATININE FOR GFR 0.64 MG/DL (0.55-1.30); FERRITIN 39.9 NG/ML (7.3-270.7); FREE T4 1.36 NG/DL (0.89-1.76); GLOMERULAR FILTRATION RATE > 60.0 (>60); GLUCOSE, FASTING 82 MG/DL (60-100); HDL CHOLESTEROL 46.4 MG/DL (>40); LDL CHOLESTEROL 132.2 MG/DL (<100); NON-HDL-C 158.6 MG/DL; POTASSIUM SERUM 4.4 MMOL/L (3.5-5.1); SODIUM LEVEL 137 MMOL/L (136-145); THYROID STIMULATING HORMONE 1.511 uIU/ML (0.55-4.78); TOTAL PROTEIN 7.3 G/DL (5.7-8.2); TRIGLYCERIDES LEVEL 132 MG/DL (<150)
== END ==
LOC: M PLALAB 09:04
PROVIDERS: ATTEND Nurse Practitioner Adult Health
DX: Z00.00 Encounter for general adult medical examination without abnormal findings (principal); R53.83 Other fatigue; Z13.220 Encounter for screening for lipoid disorders; Z13.1 Encounter for screening for diabetes mellitus; Z13.29 Encounter for screening for other suspected endocrine disorder